=== PATIENT | female | born 1985 | race Caucasian/White ===

== ENCOUNTER 2022-11-21 16:27 | Inpatient (IN) | payer OTHER ==
[~2022-11-21 16:27] MED LIST: EPINEPHrine 1 MG/ML SDV IV ONE; fentaNYL 100 MCG/2 ML SDV IVPUSH ONE
[2022-11-21] MEDS ORDERED: Sodium Chloride 0.9% 10 ML Syringe FLUSH PRN (17:28)
[2022-11-21] MEDS ORDERED: Carboprost Tromethamine 250 MCG/1 ML Amp IM PRN (17:28)
[2022-11-21] MEDS ORDERED: Acetaminophen 325 MG Tab PO PRN ×2 (17:28→22:42)
[2022-11-21] MEDS ORDERED: Lidocaine 1% 30 ML SDV INJECT PRN (17:28)
[2022-11-21] MEDS ORDERED: Lactated Ringers 1,000 ML IV ONE (17:28)
[2022-11-21] MEDS ORDERED: Tranexamic Acid 1,000 MG in Sodium Chloride 0.9% 100 ML IV PRN (17:28)
[2022-11-21] MEDS ORDERED: Ondansetron 4 MG/2 ML SDV IVPUSH PRN (17:28)
[2022-11-21] MEDS ORDERED: Misoprostol 400 MCG (4 X 100 MCG TAB) RECTAL PRN (17:28)
[2022-11-21] MEDS ORDERED: Methylergonovine 0.2 MG/1 ML Amp IM PRN (17:28)
[2022-11-21] MEDS ORDERED: Oxytocin/Normal Saline 30 UNIT/500 ML BAG IV SCH (17:30)
[2022-11-21] MEDS ORDERED: Lactated Ringers 1,000 ML IV SCH (17:30)
[2022-11-21] MEDS ORDERED: Ropivacaine 100 ML ONE (18:29)
[2022-11-21] MEDS ORDERED: fentaNYL 100 MCG/2 ML SDV ONE ×2 (18:29→20:34)
[2022-11-21] MEDS ORDERED: Oxytocin 10 Units/1 ML SDV IM PRN (22:42)
[2022-11-21] MEDS ORDERED: Ibuprofen 800 MG Tab PO PRN (22:42)
[2022-11-21] MEDS ORDERED: Benzocaine/Menthol 20%-0.5% Spray 78 GM Cannister TOP PRN (22:42)
[2022-11-21] MEDS ORDERED: Simethicone 80 MG Tab.Chew PO PRN (22:42)
[2022-11-21] MEDS ORDERED: Docusate Sodium 100 MG Cap PO PRN (22:42)
[2022-11-22] MEDS ORDERED: Prenatal Multivitamin with Calcium/Folic Acid/Iron Tab PO SCH (09:00)
[2022-11-23] MEDS ORDERED: fentaNYL 100 MCG/2 ML SDV ITHECAL ONE (12:00)
== END 2022-11-23 12:01 | disposition home or self-care (01) | DRG 807 ==
LOC: DL.OBCHECK 16:27 → DL.OB 17:28 → OBSVTOIN 22:15 → DL.OB 22:15
PROVIDERS: ADMIT Family Medicine; ATTEND Family Medicine
PROC: 10E0XZZ Delivery of Products of Conception, External Approach (ICD-10-PCS; principal; 2022-11-21)
PROC: 3E0R3BZ Introduction of Anesthetic Agent into Spinal Canal, Percutaneous Approach (ICD-10-PCS; 2022-11-21)
DX: O36.63X0 Maternal care for excessive fetal growth, third trimester, not applicable or unspecified (principal); Z37.0 Single live birth; O99.814 Abnormal glucose complicating childbirth; Z3A.38 38 weeks gestation of pregnancy
CPT/HCPCS: 01960; 36415; 51701; 59025; 59409; 85027; 86592; A9270-GY; J0171; J2590; J3010; J7120